=== PATIENT | female | born 1995 | race Caucasian/White ===

== ENCOUNTER 2020-02-13 17:56 | Outpatient (CLI) | payer OTHER | END 2020-02-13 19:47 | disposition home or self-care (01) | LOC: GENOP 17:56 | DX: O98.513 Other viral diseases complicating pregnancy, third trimester (principal); M54.9 Dorsalgia, unspecified; U07.1 COVID-19; Z3A.37 37 weeks gestation of pregnancy | CPT/HCPCS: 81001; 87635; G0463 ==

== ENCOUNTER → 2020-02-28 | Outpatient (CLI) | payer OTHER ==
[2020-02-28 13:41] LABS: HEMOGLOBIN 11.8 gm/dl (12.3-15.3); RED BLOOD COUNT 4.08 M/UL (4.00-5.10)
== END ==
LOC: GENOP 12:52
PROVIDERS: Obstetrics & Gynecology
DX: Z01.812 Encounter for preprocedural laboratory examination (principal); O34.219 Maternal care for unspecified type scar from previous cesarean delivery
CPT/HCPCS: 36415; 81001; 85025

== ENCOUNTER 2020-03-02 09:31 | Inpatient (IN) | payer OTHER ==
[2020-03-03 05:29] LABS: HEMOGLOBIN 8.8 gm/dl (12.3-15.3)
== END 2020-03-03 18:44 | disposition home or self-care (01) | DRG 788 ==
LOC: GENOP 09:31 → OB 09:39
PROVIDERS: Obstetrics & Gynecology; ADMIT Obstetrics & Gynecology
PROC: 0DNW0ZZ Release Peritoneum, Open Approach (ICD-10-PCS; 2020-03-02)
PROC: 10D00Z1 Extraction of Products of Conception, Low, Open Approach (ICD-10-PCS; principal; 2020-03-02 11:18)
DX: O69.2XX0 Labor and delivery complicated by other cord entanglement, with compression, not applicable or unspecified (principal); O34.211 Maternal care for low transverse scar from previous cesarean delivery; O99.892 Other specified diseases and conditions complicating childbirth; N73.6 Female pelvic peritoneal adhesions (postinfective); N85.8 Other specified noninflammatory disorders of uterus; Z3A.37 37 weeks gestation of pregnancy; Z37.0 Single live birth; Z88.0 Allergy status to penicillin; Z28.21 Immunization not carried out because of patient refusal
CPT/HCPCS: 85014; 85018; C9113; J0694; J1885; J2274; J2405; J2590; J2795; J3010; J7120